=== PATIENT | female | born 1990 | race African-American/Black ===

== ENCOUNTER 2025-11-18 11:32 | Emergency (ER) | payer OTHER ==
[~2025-11-18] VITALS: Ht 177.8 cm; Wt 74.8 kg
[2025-11-18 12:17] LABS: ASPARTATE AMINOTRANSFERASE 22.0 U/L (15-37); CALCIUM, SERUM 9.8 mg/dL (8.5-10.1); CREATININE 0.5 mg/dL (0.6-1.3); PLATELET COUNT (AUTO) 268 K/uL (150-450); RED BLOOD CELL COUNT(AUTO) 4.21 MIL/uL (4.0-5.2); RED CELL DISTRIBUTION WIDTH 12.2 % (11.5-15.0); SODIUM SERUM 131.0 mmol/L (136-145); TOTAL PROTEIN, SERUM 7.7 g/dL (6.4-8.2); UREA NITROGEN, BLOOD 9.0 mg/dL (7-18); WHITE BLOOD COUNT (AUTO) 20.7 K/uL (4.3-11.0)
[2025-11-18] MEDS ORDERED: ACETAMINOPHEN 325 MG TABLET ONE (12:40)
[2025-11-18] MEDS ORDERED: CEFTRIAXONE 1GM BAG (ER ONLY) 50 ML IV ONE (12:40)
[2025-11-18 12:55] LABS: LACTIC ACID 2.0 mmol/L (0.4-2.0)
[2025-11-18] MEDS: IV NS 0.9% 1,000 ML BAG IV ONE ×2 (12:55→19:20)
[2025-11-18] MEDS: CEFTRIAXONE 1GM BAG (ER ONLY) 50 ML IV ONE (13:03)
[2025-11-18] MEDS: ACETAMINOPHEN 325 MG TABLET PO ONE (13:03)
[2025-11-18 13:12] LABS: APPEARANCE,URINE SLIGHTLY CLOUDY (CLEAR); BLOOD, URINE 3+ Ery/uL (NEGATIVE); LEUKOCYTE ESTERASE ,URINE 2+ (NEGATIVE); NITRITE, URINE NEGATIVE (NEGATIVE); UGLUCOSE 1+ mg/dL (NEGATIVE)
[2025-11-18 13:18] LABS: ADD URINE CULTURE YES; PREGNANCY TEST URINE QUAL POSITIVE (NEGATIVE)
[2025-11-18 13:20] LABS: INR 1.01 (0.91-1.10)
[2025-11-18] MEDS ORDERED: DEXT10TA18 PO (14:41)
[2025-11-18] MEDS ORDERED: CEFD300C3 PO (14:41)
[2025-11-18] MEDS ORDERED: PRAZ2CAP2 PO (14:41)
[2025-11-18] MEDS ORDERED: FLUO40CA49 PO (14:41)
[2025-11-18] MEDS ORDERED: DOXY1TAB6 PO (14:41)
[2025-11-18 18:00] VITALS: BP 121/87; TEMP 98.2; O2SAT 99
[2025-11-18] MEDS ORDERED: PIPERACI/TAZO 3.375GM/D5W 50ML PB IV ONE (18:59)
[2025-11-18] MEDS ORDERED: MORPHINE SULFATE INJ 4 MG/ML DISP.SYRIN ONE (19:15)
[2025-11-18] MEDS ORDERED: ONDANSETRON HCL/PF 4 MG/2 ML VIAL ONE (19:15)
[2025-11-18] MEDS: ONDANSETRON HCL/PF - ER 4 MG/2 ML VIAL IV ONE (19:21)
[2025-11-18] MEDS: MORPHINE SULFATE INJ 2 MG/ML DISP.SYRIN IV ONE (19:25)
[2025-11-18] MEDS: PIPERACILLIN /TAZOBACTAM 3.375 G in IV D5W 50 ML IV ONE (19:25)
== END 2025-11-18 20:35 | disposition short-term general hospital (02) ==
LOC: ER 11:57
DX: O99.112 Other diseases of the blood and blood-forming organs and certain disorders involving the immune mechanism complicating pregnancy, second trimester (principal); O20.0 Threatened abortion; O23.42 Unspecified infection of urinary tract in pregnancy, second trimester; Z3A.14 14 weeks gestation of pregnancy; R00.0 Tachycardia, unspecified
CPT/HCPCS: 99285; 96365; 76856; 96375; 96367; 93005; 84145; 85025; 80048; 87040 ×2; 87086; 83605 ×2; 83690; 80076; 84703; 81001; 36415; 85730; 86850; 84702; J2270; J2405 ×2; J2543 ×2; J7060; J7030; J7050; J0696; A4223